=== PATIENT | male | born 1965 | race Caucasian/White ===

== ENCOUNTER 2023-10-11 06:44 | Day surgery (SDC) | payer MEDICARE, MEDICAID ==
[2023-10-11] MEDS: Cyclopentolat/Tropic/Phenyleph 1 ML Ophth Drop SDV EYERT SCH (07:25)
[2023-10-11] MEDS: Lactated Ringers 1,000 ML IV SCH (07:40)
[2023-10-11] MEDS ORDERED: Midazolam 1 MG/ML 2 ML SDV ONE ×2 (08:05)
[2023-10-11] MEDS ORDERED: fentaNYL 50 MCG/ML SDV ONE ×2 (08:05)
[2023-10-11] MEDS: Povidone-Iodine 5% Sterile Ophth Soln 30 ML Bottle EYERT ONE (08:17)
[2023-10-11] MEDS: Phenyleprhine/Ketorolac 4 ML Vial OP ONE (08:17)
[2023-10-11] MEDS: Trypan Blue 0.06% Ophth Soln 0.5 ML Syringe EYERT ONE (08:17)
[2023-10-11] MEDS: TETRACAINE 0.5% EYERT ONE (08:17)
[2023-10-11] MEDS: MOXIFLOXACIN PF in BSS 1 MG/ML VIAL ICORN ONE (08:17)
[2023-10-11] MEDS: Lidocaine 1% PF 2 ML SDV INJECT ONE (08:17)
[2023-10-11] MEDS: Brimonidine 0.2% Ophth Soln 5 ML Bottle EYERT ONE (08:17)
[2023-10-11] MEDS: acetaZOLAMIDE 500 MG Cap.ER PO ONE (09:39)
== END 2023-10-11 10:00 | disposition home or self-care (01) ==
LOC: CC.SDS 06:44
PROVIDERS: ATTEND Ophthalmology
DX: H26.9 Unspecified cataract (principal); F41.9 Anxiety disorder, unspecified; I10 Essential (primary) hypertension; J44.9 Chronic obstructive pulmonary disease, unspecified; F17.210 Nicotine dependence, cigarettes, uncomplicated; Z79.899 Other long term (current) drug therapy
CPT/HCPCS: A9270-GY; J1097; J2250; J3010; J3490; J7120

== ENCOUNTER 2023-11-08 07:14 | Day surgery (SDC) | payer MEDICARE, MEDICAID ==
[2023-11-08] MEDS: Cyclopentolat/Tropic/Phenyleph 1 ML Ophth Drop SDV EYELF SCH (08:40)
[2023-11-08] MEDS: Lactated Ringers 1,000 ML IV SCH (08:40)
[2023-11-08] MEDS ORDERED: Midazolam 1 MG/ML 2 ML SDV ONE (09:10)
[2023-11-08] MEDS ORDERED: fentaNYL 50 MCG/ML SDV ONE (09:10)
[2023-11-08] MEDS: Phenyleprhine/Ketorolac 4 ML Vial OP ONE (09:21)
[2023-11-08] MEDS: Povidone-Iodine 5% Sterile Ophth Soln 30 ML Bottle EYELF ONE (09:21)
[2023-11-08] MEDS: Brimonidine 0.2% Ophth Soln 5 ML Bottle EYELF ONE (09:21)
[2023-11-08] MEDS: Lidocaine 1% PF 2 ML SDV INJECT ONE (09:21)
[2023-11-08] MEDS: Tetracaine HCl/PF 0.5% 4 ML Bottle EYELF ONE (09:21)
[2023-11-08] MEDS: MOXIFLOXACIN PF in BSS 1 MG/ML VIAL IO ONE (09:21)
[2023-11-08] MEDS: Trypan Blue 0.06% Ophth Soln 0.5 ML Syringe EYELF ONE (09:25)
[2023-11-08] MEDS: acetaZOLAMIDE 500 MG Cap.ER PO ONE (10:07)
== END 2023-11-08 10:29 | disposition home or self-care (01) ==
LOC: CC.SDS 07:14
PROVIDERS: ATTEND Ophthalmology
DX: H26.9 Unspecified cataract (principal); H57.03 Miosis; F41.9 Anxiety disorder, unspecified; J44.9 Chronic obstructive pulmonary disease, unspecified; I10 Essential (primary) hypertension; F17.200 Nicotine dependence, unspecified, uncomplicated; Z79.899 Other long term (current) drug therapy
CPT/HCPCS: A9270-GY; J1097; J2250; J3010; J3490; J7120; V2632